=== PATIENT | female | born 1935 | race Caucasian/White ===

== ENCOUNTER 2017-12-17 08:06 | Emergency (ER) | payer MEDICARE ==
--- NOTE | 2017-12-17 08:19 | ERPHSYRPT ---
- History of Present Illness Time Seen by Provider: 12/17/17 08:14 Source: EMS Physician History: The patient is an 82-year-old demented female brought in by ambulance where she was reportedly found in a ditch filled with a few inches of cold water in front of her daughter's house this morning. The passerby called 911. The family did not know that the patient had walked out of the house during the night. It was lightly raining this morning. It had rained all night as well. There was about 6 inches of water in the ditch. Temperature outside is about 50. The patient doesn't recall much due to her dementia. Her past medical history is significant for hypertension, diabetes, hypothyroidism, dementia, and high cholesterol. Timing/Duration: today Severity: moderate Allergies/Adverse Reactions: No Known Drug Allergies Allergy (Verified 12/17/17 08:15) Home Medications: Amlodipine Besylate 5 mg [Norvasc 5 mg] 5 mg PO DAILY 04/05/12 [History] Aspirin EC 81 mg [Ecotrin 81 mg] 81 mg PO DAILY 04/05/12 [History] Atorvastatin Calcium [Lipitor 20MG Tablet] 40 mg PO DAILY 04/05/12 [History] Hydrochlorothiazide 25 mg [hydroDIURIL 25 MG] 25 mg PO DAILY 04/05/12 [ History] Metformin HCl 1000 mg [Glucophage 1000 MG] 1,000 mg PO BID 04/05/12 [History] Metoprolol Succinate 50 mg [Toprol Xl 50 MG] 50 mg PO BID 04/05/12 [ History] Enalapril Maleate [Vasotec] 40 mg PO DAILY 08/13/16 [History] Escitalopram Oxalate 10 mg [Lexapro 10 MG] 20 mg PO DAILY 08/13/16 [History] Levothyroxine Sodium [Synthroid] 137 mcg PO DAILY 08/13/16 [History] Omeprazole 20 MG [Prilosec 20 mg] 40 mg PO UD 08/13/16 [History] Hx Tetanus, Diphtheria Vaccination/Date Given: No Hx Influenza Vaccination/Date Given: (UNSURE) Hx Pneumococcal Vaccination/Date Given: (UNSURE) - Review of Systems Constitutional: Weakness, No Fever, No Chills Eyes: No Symptoms Ears, Nose, & Throat: No Symptoms Respiratory: No Cough, No Dyspnea Cardiac: No Chest Pain, No Edema, No Syncope Abdominal/Gastrointestinal: No Abdominal Pain, No Nausea, No Vomiting, No Diarrhea Genitourinary Symptoms: No Dysuria Musculoskeletal: No Back Pain, No Neck Pain Skin: No Rash Neurological: No Dizziness, No Focal Weakness, No Sensory Changes Psychological: No Symptoms Endocrine: No Symptoms Hematologic/Lymphatic: No Symptoms Immunological/Allergic: No Symptoms All Other Systems: Reviewed and Negative - Past Medical History Pertinent Past Medical History: Yes Neurological History: Dementia ENT History: No Pertinent History Cardiac History: High Cholesterol Respiratory History: No Pertinent History Endocrine Medical History: Diabetes Type II, Hypothyroidism Musculoskeletal History: Arthritis GI Medical History: Esophageal Disorder History: No Pertinent History Psycho-Social History: Depression Female Reproductive Disorders: No Pertinent History Other Medical History: NIDDM, HTN, High Chol, Depression, Bowel Obstruction, Hypothyroidism - Past Surgical History Past Surgical History: Yes Neuro Surgical History: No Pertinent History Cardiac: No Pertinent History Respiratory: No Pertinent History Gastrointestinal: Appendectomy Genitourinary: No Pertinent History Musculoskeletal: Joint Replacement Female Surgical History: No Pertinent History Other Surgical History: lt hip 2013 - Social History Smoking Status: Never smoker Exposure to second hand smoke: No Drug Use: none Patient Lives Alone: No - Nursing Vital Signs Nursing Vital Signs: Initial Vital Signs Temperature 97.9 F 12/17/17 08:08 Pulse Rate 77 12/17/17 08:08 Respiratory Rate 16 12/17/17 08:08 O2 Sat by Pulse Oximetry 96 12/17/17 08:08 Pain Scale Pain Intensity 4 - Physical Exam General Appearance: mild distress Eye Exam: PERRL/EOMI, eyes nml inspection Ears, Nose, Throat Exam: normal ENT inspection, TMs normal, pharynx normal, moist mucous membranes Neck Exam: normal inspection, non-tender, supple, full range of motion Respiratory Exam: normal breath sounds, lungs clear, No respiratory distress Cardiovascular Exam: regular rate/rhythm, normal heart sounds, normal peripheral pulses Gastrointestinal/Abdomen Exam: soft, normal bowel sounds, No tenderness, No mass Pelvic Exam: not done Rectal Exam: not done Back Exam: normal inspection, normal range of motion, No CVA tenderness, No vertebral tenderness Extremity Exam: joint swelling (left wrist), tenderness (left wrist) Neurologic Exam: cooperative Skin Exam: other (cool), No cyanosis, No mottled Lymphatic Exam: No adenopathy SpO2 Interpretation: normal - Radiology Exams Left Wrist X-ray Interpretation: Reviewed by me, Teleradiologist Report, Displaced Fracture (distal radius) Ordered Tests: Active Orders 24 hr Category Date Time Status Catheter-Kearny Jones STAT Care 12/17/17 08:24 Active IV Insertion STAT Care 12/17/17 08:24 Active Splint STAT Care 12/17/17 09:14 Active WRIST (MIN 3 VIEWS) Stat Exams 12/17/17 08:26 Completed CBC W DIFF Stat Lab 12/17/17 08:49 Completed CMP Stat Lab 12/17/17 08:49 Completed CULTURE,URINE Stat Lab 12/17/17 09:10 Received Lactic Acid Stat Lab 12/17/17 08:55 Completed Lactic Acid Stat Lab 12/17/17 11:09 Ordered TROPONIN Stat Lab 12/17/17 08:49 Completed UA W/ MICROSCOPIC Stat Lab 12/17/17 09:10 Completed Medication Summary Discontinued Medications Generic Name Dose Route Start Last Admin Trade Name Freq PRN Reason Stop Dose Admin Potassium Chloride 10 meq 12/17/17 09:58 12/17/17 10:09 Klor Con 10 Meq PO 12/17/17 09:59 10 meq STAT ONE Administration Potassium Chloride Confirm 12/17/17 10:06 Klor Con 10 Meq Administered 12/17/17 10:07 Dose 10 meq PO .STK-MED ONE Lab/Rad Data: Laboratory Result Diagrams 12/17/17 08:49 12/17/17 08:49 Laboratory Results 12/17/17 12/17/17 12/17/17 Range/Units 09:10 08:55 08:49 WBC (4.0-10.5) K/mm3 RBC (4.1-5.4) M/mm3 Hgb (12.0-16.0) gm/dl Hct (35-47) % MCV (78-100) fl MCH (26-32) pg MCHC (32-36) g/dl RDW (11.5-14.0) % Plt Count (150-450) K/mm3 MPV (6-9.5) fl Gran % (36.0-66.0) % Lymphocytes % (24.0-44.0) % Monocytes % (0.0-12.0) % Eosinophils % (0.00-5.0) % Basophils % (0.0-0.4) % Basophils # (0-0.4) Sodium (136-145) mEq/L Potassium (3.5-5.1) mEq/L Chloride (98-107) mEq/L Carbon Dioxide (21-32) mEq/L Anion Gap (5-15) MEQ/L BUN (9-20) mg/dL Creatinine (0.55-1.30) mg/dl Estimated GFR ML/MIN Glucose (70-110) MG/DL Lactic Acid 2.0 (0.4-2.0) Calcium (8.5-10.1) mg/dL Total Bilirubin (0.2-1.0) mg/dL AST (15-37) U/L ALT (12-78) U/L Alkaline Phosphatase (46-116) U/L Troponin I < 0.017 (0.000-0.056) ng/ml Serum Total Protein (6.4-8.2) gm/dL Albumin (3.4-5.0) g/dL Ur Collection Type CLEAN CATCH Urine Color YELLOW (YELLOW) Urine Appearance HAZY (CLEAR) Urine pH 5.0 (5-6) Ur Specific [place] 1.015 (1.005-1.025) Urine Protein TRACE (Negative) Urine Ketones NEGATIVE (NEGATIVE) Urine Blood 250 (0-5) Irineo/ul Urine Nitrite POSITIVE (NEGATIVE) Urine Bilirubin NEGATIVE (NEGATIVE) Urine Urobilinogen NORMAL (0-1) mg/dL Ur Leukocyte Esterase NEGATIVE (NEGATIVE) Urine Microscopic RBC 25-50 (0-2) /HPF Urine Microscopic WBC 0-2 (0-5) /HPF Ur Epithelial Cells FEW (FEW) /HPF Urine Bacteria MANY (NEGATIVE) /HPF Hyaline Casts 0-2 (0-2) /LPF Urine Culture Reflexed YES (NO) Urine Glucose NEGATIVE (NEGATIVE) mg/dL Slides for Path Review Specimen Received 12/17/17 0812/17/17 12/17/17 Range/Units 08:49 08:49 WBC 11.8 H (4.0-10.5) K/mm3 RBC 3.51 L (4.1-5.4) M/mm3 Hgb 11.1 L (12.0-16.0) gm/dl Hct 34.1 L (35-47) % MCV 97.2 (78-100) fl MCH 31.6 (26-32) pg MCHC 32.6 (32-36) g/dl RDW 13.7 (11.5-14.0) % Plt Count 245 (150-450) K/mm3 MPV 10.6 H (6-9.5) fl Gran % 35.6 L (36.0-66.0) % Lymphocytes % 59.8 H (24.0-44.0) % Monocytes % 3.5 (0.0-12.0) % Eosinophils % 0.8 (0.00-5.0) % Basophils % 0.3 (0.0-0.4) % Basophils # 0.03 (0-0.4) Sodium 143 (136-145) mEq/L Potassium 3.4 L (3.5-5.1) mEq/L Chloride 102 (98-107) mEq/L Carbon Dioxide 32.4 H (21-32) mEq/L Anion Gap 11.7 (5-15) MEQ/L BUN 21 H (9-20) mg/dL Creatinine 1.09 (0.55-1.30) mg/dl Estimated GFR 51 ML/MIN Glucose 167 H (70-110) MG/DL Lactic Acid (0.4-2.0) Calcium 8.8 (8.5-10.1) mg/dL Total Bilirubin 0.50 (0.2-1.0) mg/dL AST 17 (15-37) U/L ALT 14 (12-78) U/L Alkaline Phosphatase 62 (46-116) U/L Troponin I (0.000-0.056) ng/ml Serum Total Protein 6.9 (6.4-8.2) gm/dL Albumin 3.8 (3.4-5.0) g/dL Ur Collection Type Urine Color (YELLOW) Urine Appearance (CLEAR) Urine pH (5-6) Ur Specific [place] (1.005-1.025) Urine Protein (Negative) Urine Ketones (NEGATIVE) Urine Blood (0-5) Irineo/ul Urine Nitrite (NEGATIVE) Urine Bilirubin (NEGATIVE) Urine Urobilinogen (0-1) mg/dL Ur Leukocyte Esterase (NEGATIVE) Urine Microscopic RBC (0-2) /HPF Urine Microscopic WBC (0-5) /HPF Ur Epithelial Cells (FEW) /HPF Urine Bacteria (NEGATIVE) /HPF Hyaline Casts (0-2) /LPF Urine Culture Reflexed (NO) Urine Glucose (NEGATIVE) mg/dL Slides for Path Review YES Specimen Received - Progress Progress: improved Progress Note: 12/17/17 11:33 The patient was able to ambulate down the bales with some assistance. Counseled pt/family regarding: lab results, diagnosis, need for follow-up, rad results - Departure Time of Disposition: 09:59 Departure Disposition: Home Clinical Impression: Distal radius fracture, left, UTI (urinary tract infection), Hypokalemia, Fall , Hypothermia Condition: Stable Critical Care Time: No Referrals: DELL GORDON MD [Primary Care Provider] - Additional Instructions: You have a fracture of your left wrist. You were placed in a wrist splint. On Wednesday follow-up with the [facility] in [place] for a cast. There are number is [phone]. The address is [address] [place] [address]. You came in with hypothermia as well. Your serum potassium level was slightly low and you were given potassium 10 mEq orally. You also have a UTI. Take Macrobid 100 mg 2 times a day for 7 days. Follow-up on Wednesday at the [facility]. Follow-up with your primary medical doctor next week. Prescriptions: Nitrofurantoin Macro 100 mg [Macrobid 100MG Capsule] 100 mg PO BID #14 capsule
--- NOTE | 2017-12-17 08:52 | XRAY ---
Indication: Pain following fall. Comparison: None 3 views of the left wrist demonstrates osteopenia and displaced/angulated transverse fracture of the distal radius with soft tissue swelling. No other bony, articular, or soft tissue abnormalities.
[2017-12-17 08:53] LABS: BASOPHIL % 0.3 % (0.0-0.4); Basophil (Absolute #) 0.03 (0-0.4); Eosinophil % 0.8 % (0.00-5.0); Granulocyte Absolute (ANC) 4.22 (1.4-6.9); Granulocytes % 35.6 % (36.0-66.0); Hematocrit 34.1 % (35-47); Hemoglobin 11.1 gm/dl (12.0-16.0); Lymphocyte (Absolute #) 7.08 (1.0-4.6); Lymphocytes % 59.8 % (24.0-44.0); Mean Cell Volume 97.2 fl (78-100); Mean Corpuscular Hemoglobin 31.6 pg (26-32); Mean Corpuscular Hgb Concent. 32.6 g/dl (32-36); Mean Platelet Volume 10.6 fl (6-9.5); Monocyte (Absolute #) 0.41 (0.0-1.3); Monocytes % 3.5 % (0.0-12.0); Platelet Count 245 K/mm3 (150-450); Red Blood Count 3.51 M/mm3 (4.1-5.4); Red Cell Distribution Width 13.7 % (11.5-14.0); White Blood Count 11.8 K/mm3 (4.0-10.5)
[2017-12-17 09:17] LABS: Slide Review 1 YES
[2017-12-17 09:25] LABS: Appearance HAZY (CLEAR); Bilirubin NEGATIVE (NEGATIVE); Blood 250 Ery/ul (0-5); Glucose NEGATIVE (NEGATIVE); Ketones NEGATIVE (NEGATIVE); Leukocyte Esterase NEGATIVE (NEGATIVE); Nitrite POSITIVE (NEGATIVE); Protein,Urine Dip TRACE (Negative); Specific Gravity 1.015 (1.005-1.025); Urobilinogen NORMAL mg/dL (0-1)
[2017-12-17 09:26] LABS: ALBUMIN 3.8 g/dL (3.4-5.0); ANION GAP 11.7 MEQ/L (5-15); BILIRUBIN,TOTAL 0.5 mg/dL (0.2-1.0); Calcium 8.8 mg/dL (8.5-10.1); Carbon Dioxide 32.4 mEq/L (21-32); Creatinine 1 1.09 mg/dl (0.55-1.30); Potassium 3.4 mEq/L (3.5-5.1); Total Protein 6.9 gm/dL (6.4-8.2)
[2017-12-17 09:39] LABS: Bacteria MANY /HPF (NEGATIVE); Epithelial Cells FEW /HPF (FEW); WBC 0-2 /HPF (0-5)
[2017-12-17 09:40] LABS: Hyaline Casts 0-2 /LPF (0-2)
[2017-12-17] MEDS ORDERED: Klor Con 10 MEQ PO ONE ×2 (09:58→10:06)
[2017-12-17 11:50] VITALS: BP 165/76; PULSE 92; O2SAT 96
== END 2017-12-17 12:03 | disposition home or self-care (01) ==
LOC: ED 08:06
DX: S52.502A Unspecified fracture of the lower end of left radius, initial encounter for closed fracture (principal); N39.0 Urinary tract infection, site not specified; E87.6 Hypokalemia; T68.XXXA Hypothermia, initial encounter; X31.XXXA Exposure to excessive natural cold, initial encounter; W19.XXXA Unspecified fall, initial encounter; Z79.899 Other long term (current) drug therapy
CPT/HCPCS: 36415; 51702; 73110; 80053; 81000; 83605; 84484; 85025; 87077; 87086; 87186; 96360; 96361; 99285; L3908; A9270-GY

== ENCOUNTER 2017-12-17 10:30 | Inpatient (IN) | payer MEDICARE ==
[2017-12-17] MEDS ORDERED: NovoLOG Insulin SQ PRN (21:33)
[2017-12-17] MEDS ORDERED: MORPHINE SULFATE 2 MG INJ IV PRN (21:42)
[2017-12-17] MEDS: Sodium Chloride 0.9% 1000 ML 1,000 ML IV SCH (23:19)
[2017-12-18 06:03] LABS: Calcium 8.6 mg/dL (8.5-10.1); Carbon Dioxide 28.4 mEq/L (21-32); Creatinine 1 1.02 mg/dl (0.55-1.30); Hematocrit 29.7 % (35-47); Hemoglobin 9.8 gm/dl (12.0-16.0); Mean Cell Volume 97.1 fl (78-100); Mean Platelet Volume 10.9 fl (6-9.5); Platelet Count 242 K/mm3 (150-450); Potassium 3.2 mEq/L (3.5-5.1); Red Blood Count 3.06 M/mm3 (4.1-5.4); Red Cell Distribution Width 13.8 % (11.5-14.0)
[2017-12-18 06:19] LABS: INR 1.08 (0.8-3.0)
--- NOTE | 2017-12-18 08:39 | XRAY ---
Indication: Pain. Comparison: July 10, 2014. AP pelvis and 2 views of the left hip again demonstrates osteopenia and old left intertrochanteric fracture with intact orthopedic hardware and a few heterotopic ossifications. Mild/moderate degenerative changes of both hips and visualized lower lumbar spine. Scattered vascular calcifications. No other bony, articular, or soft tissue abnormalities. Comment: Preliminary interpretation was made by [facility]. No discrepancy.
[2017-12-18] MEDS ORDERED: Klor Con 10 MEQ PO ONE (08:45)
[2017-12-18] MEDS ORDERED: NORCO 5/325 MG PO PRN (09:34)
[2017-12-18] MEDS: ROCEPHIN 1 Gm-D5w 50 ml Bag** 1 G/50 ML IVPB IV SCH (09:56)
[2017-12-18] MEDS: Lexapro 10 MG PO SCH (09:59)
[2017-12-18] MEDS: hydroDIURIL 25 MG PO SCH (10:00)
[2017-12-18] MEDS: ECOTRIN 81 MG PO SCH (10:00)
[2017-12-18] MEDS ORDERED: NON-FORMULARY ITEM (Metformin Hcl 1000 Mg [Glucophage 1000 Mg] 1,000 MG) PO SCH (10:00)
[2017-12-18] MEDS ORDERED: NON-FORMULARY ITEM (Donepezil Hcl [Aricept] 5 MG) PO SCH (10:00)
[2017-12-18] MEDS: Vasotec 10 MG PO SCH ×2 (10:00→21:25)
[2017-12-18] MEDS: NORVASC 5 MG PO SCH (10:01)
[2017-12-18] MEDS: Aricept 10 MG PO SCH (10:01)
[2017-12-18] MEDS: Lopressor 50 MG PO SCH ×2 (10:02→21:25)
[2017-12-18] MEDS: Glucophage 500 MG PO SCH ×2 (10:15→17:19)
[2017-12-18] MEDS: ENOXAPARIN SODIUM SQ SCH (10:16)
--- NOTE | 2017-12-18 11:34 | PCM.NOTE ---
Date and Time: 12/18/17 1129 Subjective Assessment: She denies any concerns this AM but that she wants to get up to use the restroom. Her wrist brace is in place. - Review of Systems Constitutional: No Symptoms Eyes: No Symptoms Ears, Nose, & Throat: No Symptoms Respiratory: No Symptoms Cardiac: No Symptoms Abdominal/Gastrointestinal: No Symptoms Genitourinary Symptoms: No Symptoms Musculoskeletal: Other (left wrist pain, trouble walking) Objective Exam General Appearance: no apparent distress, alert Neurologic Exam: alert, cooperative, normal mood/affect, other (left wrist in brace) Skin Exam: normal color, warm, dry, No rash Respiratory Exam: normal breath sounds, lungs clear, No crackles/rales, No rhonchi, No wheezing Cardiovascular Exam: regular rate/rhythm, normal heart sounds, No murmur, No friction rub, No gallop Gastrointestinal/Abdomen Exam: soft, normal bowel sounds, No tenderness, No distention, No mass Extremity Exam: other (no c/c/e) OBJECTIVE DATA Vital Signs: Vital Signs - 24 hr Temp Pulse Resp BP Pulse Ox 12/18/17 07:24 98.4 F 91 H 16 194/85 92 L 12/18/17 04:00 97.8 F 85 24 155/72 93 L 12/18/17 00:31 97.9 F 80 18 137/75 95 12/17/17 22:17 98.8 F 75 20 134/63 95 Pain Assessment - Last Documented Pain Scale Used [facility] Intake and Output: Intake & Output 12/16/17 12/17/17 12/18/17 12/19/17 06:59 06:59 06:59 06:59 Intake Total 113 120 Output Total 500 Balance 113 -380 Weight 79.8 kg Lab Results: Accuchecks Date 12/18/17 Time 22:00 Accucheck Value: 120 Lab Results-Last 24 Hours 12/18/17 12/18/17 12/18/17 Range/Units 05:44 05:44 05:44 WBC 15.0 H (4.0-10.5) K/mm3 RBC 3.06 L (4.1-5.4) M/mm3 Hgb 9.8 L (12.0-16.0) gm/dl Hct 29.7 L (35-47) % MCV 97.1 (78-100) fl MCH 32.0 (26-32) pg MCHC 33.0 (32-36) g/dl RDW 13.8 (11.5-14.0) % Plt Count 242 (150-450) K/mm3 MPV 10.9 H (6-9.5) fl INR 1.08 (0.8-3.0) Sodium 146 H (136-145) mEq/L Potassium 3.2 L (3.5-5.1) mEq/L Chloride 106 (98-107) mEq/L Carbon Dioxide 28.4 (21-32) mEq/L Anion Gap 15.0 (5-15) MEQ/L BUN 20 (9-20) mg/dL Creatinine 1.02 (0.55-1.30) mg/dl Estimated GFR 55 ML/MIN Glucose 178 H (70-110) MG/DL Calcium 8.6 (8.5-10.1) mg/dL Radiology Exams: Radiology Procedures Category Date Time Status HIP UNI (2V) INCL PEL IF DONE Routine Exams 12/18/17 04:11 Completed Assessment/Plan (1) Gait instability Current Visit: Yes Status: Acute Assessment & Plan: PT has been consulted, on fall precautions. Her family states they want to take her back home once she is safe to ambulate at home on her own. Code(s): R26.81 - UNSTEADINESS ON FEET (2) Frequent falls Current Visit: Yes Status: Acute Code(s): R29.6 - REPEATED FALLS (3) UTI (urinary tract infection) Current Visit: No Status: Acute Assessment & Plan: She was unable to start her oral antibiotic at home and from reveiw of the ER note, she was not given an antibiotic in the ER while she was there yesterday AM. Will start ceftriaxone 1 g IV daily today. Urine culture in lab. Code(s): N39.0 - URINARY TRACT INFECTION, SITE NOT SPECIFIED (4) Distal radius fracture, left Current Visit: No Status: Acute Assessment & Plan: She has an outpatient appointment with ortho Wednesday. This may need to be rescheduled. Code(s): S52.502A - UNSP FRACTURE OF THE LOWER END OF LEFT RADIUS, INIT (5) Diabetes mellitus Current Visit: No Status: Acute Qualifiers: Diabetes mellitus type: type 2 Diabetes mellitus complication status: without complication Assessment & Plan: Continue home medication. Code(s): E11.9 - TYPE 2 DIABETES MELLITUS WITHOUT COMPLICATIONS (6) Dementia Current Visit: No Status: Acute Assessment & Plan: Continue home medication. Code(s): F03.90 - UNSPECIFIED DEMENTIA WITHOUT BEHAVIORAL DISTURBANCE (7) Anemia Current Visit: Yes Status: Acute Qualifiers: Anemia type: unspecified type Qualified Code(s): D64.9 - Anemia, unspecified Assessment & Plan: Will check Iron studies and Vit B 12 level. Code(s): D64.9 - ANEMIA, UNSPECIFIED (8) Hypertension Current Visit: Yes Status: Acute Assessment & Plan: Continue her home medication and continue to monitor. Code(s): I10 - ESSENTIAL (PRIMARY) HYPERTENSION
[2017-12-18 13:31] LABS: Iron Saturation 11.1 % (20-39)
[2017-12-18 14:01] LABS: Ferritin 54 (8-388)
[2017-12-18] MEDS: SYNTHROID 25 MCG PO SCH (21:25)
[2017-12-18] MEDS: TYLENOL 325 MG PO PRN (21:26)
[2017-12-18] MEDS: ZOCOR 20MG PO SCH (21:26)
[2017-12-18] MEDS: SYNTHROID 112 MCG PO SCH (21:26)
--- NOTE | 2017-12-18 21:49 | XRAY ---
Indication: Pain following fall. Comparison: None 3 views of the left shoulder demonstrates osteopenia, moderate glenohumeral degenerative arthropathy, mild AC degenerative arthropathy, and multilevel spinal degenerative spondylosis. No other bony, articular, or soft tissue abnormalities. Comment: Preliminary interpretation was made by [facility]. No critical discrepancy.
[2017-12-18] MEDS ORDERED: LEVOTHYROXINE SODIUM 137 MCG PO SCH (22:00)
[2017-12-18] MEDS ORDERED: LIPITOR 40MG PO SCH (22:00)
[2017-12-19] MEDS: Sodium Chloride 0.9% 1000 ML 1,000 ML IV SCH (08:11)
[2017-12-19] MEDS: ROCEPHIN 1 Gm-D5w 50 ml Bag** 1 G/50 ML IVPB IV SCH (08:15)
[2017-12-19] MEDS: Lexapro 10 MG PO SCH (08:15)
[2017-12-19] MEDS: ENOXAPARIN SODIUM SQ SCH (08:15)
[2017-12-19] MEDS: Aricept 10 MG PO SCH (08:16)
[2017-12-19] MEDS: Vasotec 10 MG PO SCH ×3 (08:17→21:11)
[2017-12-19] MEDS: Glucophage 500 MG PO SCH ×2 (08:18→18:06)
[2017-12-19] MEDS: NORVASC 5 MG PO SCH (08:18)
[2017-12-19] MEDS: hydroDIURIL 25 MG PO SCH (08:18)
[2017-12-19] MEDS: TYLENOL 325 MG PO PRN (08:18)
[2017-12-19] MEDS: ECOTRIN 81 MG PO SCH (08:18)
[2017-12-19] MEDS: Lopressor 50 MG PO SCH ×2 (08:18→21:10)
--- NOTE | 2017-12-19 10:54 | PCM.NOTE ---
Date and Time: 12/19/17 1049 Subjective Assessment: She seems confused this AM. When I asked if she was able to get up out of bed yesterday she told me that I should make sure that I am taking care of myself. - Review of Systems All Other Systems: Unable due to dementia (She denies any problems or concerns, but history is unreliable due to dementia.) Objective Exam General Appearance: no apparent distress Neurologic Exam: alert, cooperative, normal mood/affect Skin Exam: normal color, warm, dry, No rash Respiratory Exam: normal breath sounds, lungs clear, No crackles/rales, No rhonchi, No wheezing Cardiovascular Exam: regular rate/rhythm, normal heart sounds, No murmur, No friction rub, No gallop Gastrointestinal/Abdomen Exam: soft, normal bowel sounds, No tenderness, No distention, No mass Extremity Exam: other (left wrist in splint) OBJECTIVE DATA Vital Signs: Vital Signs - 24 hr Temp Pulse Resp BP Pulse Ox 12/19/17 07:19 97.9 F 85 18 189/79 95 12/19/17 04:00 97.8 F 80 22 146/71 90 L 12/19/17 00:00 73 18 186/81 91 L 12/18/17 20:00 98 F 97 H 12 190/92 93 L 12/18/17 17:00 98.6 F 90 16 184/86 94 L 12/18/17 11:43 98.6 F 91 H 16 186/84 93 L Oxygen-Last 24 hours O2 Percentage 3 Liters = 32% Pain Assessment - Last Documented Pain Intensity 0 Pain Scale Used [facility] Intake and Output: Intake & Output 12/17/17 12/18/17 12/19/17 12/20/17 06:59 06:59 06:59 06:59 Intake Total 113 1220 360 Output Total 1000 Balance 113 220 360 Weight 79.8 kg Lab Results: Accuchecks Date 12/19/17 Time 07:30 Accucheck Value: 159 Accucheck Value: 110 Accucheck Value: 231 Lab Results-Last 24 Hours 12/18/17 12/18/17 Range/Units 05:15 05:15 Iron 27 L (50-175) ug/dl TIBC 244 L (250-450) ug/dl Iron Saturation 11.1 L (20-39) % Ferritin 54 (8-388) Vitamin B12 196 (193-986) Radiology Exams: Radiology Procedures Category Date Time Status HIP UNI (2V) INCL PEL IF DONE Routine Exams 12/18/17 04:11 Completed SHOULDER Urgent Exams 12/18/17 12:39 Completed Multi-Disciplinary Progress Notes: Multi-Disciplinary Progress Notes 12/18/17 11:46 Case Management Note by Eneida Mccormack DISCHARGE PLAN REVIEWED WITH PATIENT AND WITH LAY CAREGIVER IN THE ROOM. PATIENT NORMALLY LIVES WITH [place] AND DAUGHTER IS ACROSS THE STRE[address]. THE FAMILY CHECKS ON HER DAILY AND COMES WHEN CALLED. YESTERDAY MORNING PATIENT WAS FOUND IN THE DITCH ACROSS THE STREET FROM HER HOME, WITH 4-5 INCHES OF WATER IN THE DITCH AND A FRACTURED WRIST. SEEN IN ER AND SENT HOME TO COME BACK LATER D.A. FAMILY REFUSES NH STAY. DOES REQUEST NEEDING HHC TO COME IN AND HELP WITH ADL'S, BATHING AND HOME MAKING. DAUGHTER GETTING A LOCK WITH AN ALARM ON THE DOOR THAT WILL HELP KEEP HER MOM FROM WANDERING. PLAN TO CONSULT OUR [facility] TO HELP COORDINATE CARE. PLAN TO RETURN HOME TO PRE EPISODIC LEVEL OF FUNCTION WITH MORE HELP IN THE HOME. WILL CONTINUE TO MONITOR FOR ALL D/C NEEDS. Initialized on 12/18/17 11:46 - END OF NOTE Assessment/Plan (1) Gait instability Current Visit: Yes Status: Acute Assessment & Plan: PT consulted. Continue with fall precautions. OT consulted also as she sometimes uses a walker but now has a fractured left wrist. Code(s): R26.81 - UNSTEADINESS ON FEET (2) Frequent falls Current Visit: Yes Status: Acute Code(s): R29.6 - REPEATED FALLS (3) UTI (urinary tract infection) Current Visit: Yes Status: Acute Assessment & Plan: Urine culture from ER visit 12/17/17 is growing a gram neg organism. Continue ceftriaxone and follow up on culture results. Code(s): N39.0 - URINARY TRACT INFECTION, SITE NOT SPECIFIED (4) Distal radius fracture, left Current Visit: Yes Status: Acute Assessment & Plan: Ortho appt was scheduled as an outpatient for Wednesday when she was in the ER on her first visit to this hospital last Wednesday but this may need to be rescheduled. Code(s): S52.502A - UNSP FRACTURE OF THE LOWER END OF LEFT RADIUS, INIT (5) Diabetes mellitus Current Visit: No Status: Chronic Qualifiers: Diabetes mellitus type: type 2 Diabetes mellitus complication status: without complication Assessment & Plan: Currently controlled. Code(s): E11.9 - TYPE 2 DIABETES MELLITUS WITHOUT COMPLICATIONS (6) Dementia Current Visit: No Status: Chronic Code(s): F03.90 - UNSPECIFIED DEMENTIA WITHOUT BEHAVIORAL DISTURBANCE (7) Anemia Current Visit: Yes Status: Acute Qualifiers: Anemia type: iron deficiency Assessment & Plan: Iron levels were low. Will check stool for hemoccult and start ferrous sulfate. Her Vit B 12 level was normal. Code(s): D64.9 - ANEMIA, UNSPECIFIED (8) Hypertension Current Visit: Yes Status: Acute Assessment & Plan: Will increase her metoprolol from 50 mg po bid to 100 mg po bid and continue her other antihypertensive medications. Code(s): I10 - ESSENTIAL (PRIMARY) HYPERTENSION
[2017-12-19] MEDS ORDERED: Lopressor 50 MG PO ONE (11:30)
[2017-12-19] MEDS: FEOSOL 325 MG PO SCH ×3 (15:08→21:10)
[2017-12-19] MEDS: SYNTHROID 25 MCG PO SCH (21:10)
[2017-12-19] MEDS: ZOCOR 20MG PO SCH ×2 (21:10→21:11)
[2017-12-19] MEDS: SYNTHROID 112 MCG PO SCH (21:11)
[2017-12-20 05:25] LABS: Granulocyte Absolute (ANC) 6.24 (1.4-6.9); Hematocrit 30.7 % (35-47); Hemoglobin 10.1 gm/dl (12.0-16.0); Mean Cell Volume 97.2 fl (78-100); Mean Corpuscular Hgb Concent. 32.9 g/dl (32-36); Mean Platelet Volume 10.7 fl (6-9.5); Platelet Count 271 K/mm3 (150-450); Red Blood Count 3.16 M/mm3 (4.1-5.4); White Blood Count 16.7 K/mm3 (4.0-10.5)
[2017-12-20 05:42] LABS: Mean Corpuscular Hemoglobin 31.9 pg (26-32)
[2017-12-20 06:13] LABS: ANION GAP 13.8 MEQ/L (5-15); BLOOD UREA NITROGEN 15 mg/dL (9-20); CHLORIDE 106 mEq/L (98-107); Calcium 8.3 mg/dL (8.5-10.1); Carbon Dioxide 29.3 mEq/L (21-32); Creatinine 1 0.88 mg/dl (0.55-1.30); Glucose 140 MG/DL (70-110); Potassium 3.1 mEq/L (3.5-5.1); SODIUM 146 mEq/L (136-145)
[2017-12-20 07:46] LABS: Eosinophil 2 % (0.00-3.0); Lymphocytes 41 % (24-44); Monocyte 2 % (0.0-12.0); Neutrophils 55 % (36.0-66.0); Total Cells Counted 100
[2017-12-20 07:47] LABS: ANISOCYTOSIS 1+; Platelet Estimate NORMAL (NORMAL); Poikilocytosis 1+; Polychromasia 1+
--- NOTE | 2017-12-20 08:05 | PCM.NOTE ---
Date and Time: 12/20/17 0803 Subjective Assessment: patient remains very confused, no other complaints. daughter concered with rapid severity increase in her confusion Objective Exam General Appearance: no apparent distress, alert Skin Exam: normal color, warm, dry Eye Exam: PERRL, EOMI, eyes nml inspection Respiratory Exam: normal breath sounds, lungs clear, No respiratory distress Cardiovascular Exam: regular rate/rhythm, normal heart sounds Gastrointestinal/Abdomen Exam: soft, No tenderness, No mass OBJECTIVE DATA Vital Signs: Vital Signs - 24 hr Temp Pulse Resp BP Pulse Ox 12/20/17 07:45 98.5 F 79 18 148/84 93 L 12/20/17 00:40 98.2 F 82 18 165/86 91 L 12/19/17 21:02 98.7 F 84 19 180/84 92 L 12/19/17 16:45 96.6 F 75 18 163/73 90 L 12/19/17 11:13 97.3 F 70 18 120/59 92 L Pain Assessment - Last Documented Pain Intensity 0 [facility] Intake and Output: Intake & Output 12/17/17 12/18/17 12/19/17 12/20/17 11:59 11:59 11:59 11:59 Intake Total 233 1460 910 Output Total 500 500 Balance -267 960 910 Weight 79.8 kg Lab Results: Accuchecks Date 12/19/17 Date 12/19/17 Time 16:30 Time 15:16 Accucheck Value: 160 Accucheck Value: 90 Lab Results-Last 24 Hours 12/20/17 12/20/17 Range/Units 05:13 05:13 WBC 16.7 H (4.0-10.5) K/mm3 RBC 3.16 L (4.1-5.4) M/mm3 Hgb 10.1 L (12.0-16.0) gm/dl Hct 30.7 L (35-47) % MCV 97.2 (78-100) fl MCH 31.9 (26-32) pg MCHC 32.9 (32-36) g/dl RDW 14.0 (11.5-14.0) % Plt Count 271 (150-450) K/mm3 MPV 10.7 H (6-9.5) fl Segmented Neutrophils 55 (36.0-66.0) % Lymphocytes (Manual) 41 (24-44) % Monocytes (Manual) 2 (0.0-12.0) % Eosinophils (Manual) 2 (0.00-3.0) % Differential Comment ABNORMAL Platelet Estimate NORMAL (NORMAL) Polychromasia 1+ Poikilocytosis 1+ Anisocytosis 1+ Sodium 146 H (136-145) mEq/L Potassium 3.1 L (3.5-5.1) mEq/L Chloride 106 (98-107) mEq/L Carbon Dioxide 29.3 (21-32) mEq/L Anion Gap 13.8 (5-15) MEQ/L BUN 15 (9-20) mg/dL Creatinine 0.88 (0.55-1.30) mg/dl Estimated GFR > 60 ML/MIN Glucose 140 H (70-110) MG/DL Calcium 8.3 L (8.5-10.1) mg/dL Radiology Exams: Radiology Procedures Category Date Time Status MRI BRAIN W/O CONTRAST [MRI] Routine Exams 12/20/17 08:02 Ordered SHOULDER Urgent Exams 12/18/17 12:39 Completed Assessment/Plan (1) UTI (urinary tract infection) Current Visit: Yes Status: Acute Assessment & Plan: on rocephin Code(s): N39.0 - URINARY TRACT INFECTION, SITE NOT SPECIFIED (2) Distal radius fracture, left Current Visit: Yes Status: Acute Code(s): S52.502A - UNSP FRACTURE OF THE LOWER END OF LEFT RADIUS, INIT (3) Gait instability Current Visit: Yes Status: Acute Code(s): R26.81 - UNSTEADINESS ON FEET (4) Dementia Current Visit: No Status: Chronic Code(s): F03.90 - UNSPECIFIED DEMENTIA WITHOUT BEHAVIORAL DISTURBANCE
[2017-12-20] MEDS: Glucophage 500 MG PO SCH ×2 (08:16→17:03)
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
[2017-12-20] MEDS: ECOTRIN 81 MG PO SCH (10:22)
[2017-12-20] MEDS: hydroDIURIL 25 MG PO SCH (10:22)
[2017-12-20] MEDS: ROCEPHIN 1 Gm-D5w 50 ml Bag** 1 G/50 ML IVPB IV SCH (10:22)
[2017-12-20] MEDS: FEOSOL 325 MG PO SCH ×3 (10:22→22:14)
[2017-12-20] MEDS: Lexapro 10 MG PO SCH (10:22)
[2017-12-20] MEDS: Aricept 10 MG PO SCH (10:22)
[2017-12-20] MEDS: Klor Con 10 MEQ PO SCH ×2 (10:22→22:14)
[2017-12-20] MEDS: Lopressor 50 MG PO SCH ×2 (10:23→22:14)
[2017-12-20] MEDS: NORVASC 5 MG PO SCH (10:23)
[2017-12-20] MEDS: Vasotec 10 MG PO SCH ×2 (10:23→22:21)
[2017-12-20] MEDS: ENOXAPARIN SODIUM SQ SCH (10:23)
[2017-12-20] MEDS ORDERED: Lopressor 50 MG PO ONE (11:30)
--- NOTE | 2017-12-20 12:32 | XRAY ---
Indication: retirement placement. Comparison: August 15, 2016. Portable chest unchanged again demonstrating medial right upper lobe infiltrate/atelectasis and minimal left base fibrosis/scarring. Remaining heart and lungs unremarkable. Bony thorax intact again with osteopenia and degenerative changes.
--- NOTE | 2017-12-20 12:35 | XRAY ---
Indication: Confusion. Acute mental status change. Possible CVA. Sagittal, coronal, and axial MRI brain was performed without contrast using T1, T2, FLAIR, diffusion, and ADC sequences. Comparison: August 14, 2016. Stable age-appropriate global atrophy and mild periventricular degenerative micro-ischemia bilaterally. No acute intracranial hemorrhage, abnormal extra-axial fluid collection, or mass effect. Diffusion images again negative for restricted signal. Fourth ventricle is midline without hydrocephalus. 7/8 cranial nerve complex bilaterally symmetric. Normal flow-void signal within the major intracerebral circulation. Normal-appearing craniocervical junction and sella turcica. Paranasal sinuses are clear. Impression: Stable atrophy and degenerative micro-ischemia. No new or acute intracranial abnormalities.
[2017-12-20] MEDS: SYNTHROID 112 MCG PO SCH (22:14)
[2017-12-20] MEDS: SYNTHROID 25 MCG PO SCH (22:15)
[2017-12-20] MEDS: ZOCOR 20MG PO SCH (22:21)
[2017-12-21 05:50] LABS: BASOPHIL % 0.2 % (0.0-0.4); Basophil (Absolute #) 0.03 (0-0.4); Eosinophil (Absolute #) 0.15 (0-0.5); Granulocyte Absolute (ANC) 4.98 (1.4-6.9); Granulocytes % 33.3 % (36.0-66.0); Hematocrit 31.3 % (35-47); Hemoglobin 10.2 gm/dl (12.0-16.0); Lymphocyte (Absolute #) 9.06 (1.0-4.6); Lymphocytes % 60.4 % (24.0-44.0); Mean Cell Volume 98.1 fl (78-100); Mean Corpuscular Hgb Concent. 32.6 g/dl (32-36); Mean Platelet Volume 11.1 fl (6-9.5); Monocyte (Absolute #) 0.77 (0.0-1.3); Monocytes % 5.1 % (0.0-12.0); Platelet Count 270 K/mm3 (150-450); Red Blood Count 3.19 M/mm3 (4.1-5.4); Red Cell Distribution Width 13.9 % (11.5-14.0)
[2017-12-21 06:04] LABS: ALKALINE PHOSPHATASE 57 U/L (46-116); ANION GAP 13.5 MEQ/L (5-15); BLOOD UREA NITROGEN 17 mg/dL (9-20); CHLORIDE 107 mEq/L (98-107); Calcium 8.3 mg/dL (8.5-10.1); Carbon Dioxide 29.6 mEq/L (21-32); Creatinine 1 0.89 mg/dl (0.55-1.30); Glucose 125 MG/DL (70-110); Potassium 3.2 mEq/L (3.5-5.1); SGOT/AST 13 U/L (15-37); SGPT/ALT 15 U/L (12-78); SODIUM 147 mEq/L (136-145); Total Protein 6.4 gm/dL (6.4-8.2)
[2017-12-21 06:05] LABS: Mean Corpuscular Hemoglobin 31.9 pg (26-32)
[2017-12-21 07:27] LABS: Slide Review 1 YES
[2017-12-21] MEDS: ROCEPHIN 1 Gm-D5w 50 ml Bag** 1 G/50 ML IVPB IV SCH (08:15)
[2017-12-21] MEDS: Lexapro 10 MG PO SCH (08:16)
[2017-12-21] MEDS: Klor Con 10 MEQ PO SCH ×2 (08:16→22:43)
[2017-12-21] MEDS: Glucophage 500 MG PO SCH ×2 (08:16→16:24)
[2017-12-21] MEDS: hydroDIURIL 25 MG PO SCH (08:16)
[2017-12-21] MEDS: ENOXAPARIN SODIUM SQ SCH (08:16)
[2017-12-21] MEDS: Lopressor 50 MG PO SCH ×2 (08:16→22:42)
[2017-12-21] MEDS: FEOSOL 325 MG PO SCH ×3 (08:16→22:42)
[2017-12-21] MEDS: Vasotec 10 MG PO SCH ×2 (08:16→22:42)
[2017-12-21] MEDS: ECOTRIN 81 MG PO SCH (08:16)
[2017-12-21] MEDS: NORVASC 5 MG PO SCH (08:16)
[2017-12-21] MEDS: Aricept 10 MG PO SCH (08:17)
[2017-12-21] MEDS: Sodium Chloride 0.9% 1000 ML 1,000 ML IV SCH (08:21)
--- NOTE | 2017-12-21 10:26 | PCM.NOTE ---
Date and Time: 12/21/17 1025 Subjective Assessment: family is encouraged, patient is more alert today. no new problems or concerns. Objective Exam General Appearance: no apparent distress, alert, other (frail and weak) Skin Exam: normal color, warm, dry Eye Exam: PERRL, EOMI, eyes nml inspection Respiratory Exam: normal breath sounds, lungs clear, No respiratory distress Cardiovascular Exam: regular rate/rhythm, normal heart sounds Gastrointestinal/Abdomen Exam: soft, No tenderness, No mass Extremity Exam: normal inspection, normal range of motion OBJECTIVE DATA Vital Signs: Vital Signs - 24 hr Temp Pulse Resp BP Pulse Ox 12/21/17 07:56 98.0 F 97 H 18 195/79 94 L 12/21/17 04:40 98.9 F 84 17 131/60 92 L 12/21/17 00:00 99.1 F 85 19 150/67 92 L 12/20/17 20:00 97.9 F 95 H 19 125/63 93 L 12/20/17 16:00 97.6 F 76 16 139/60 95 12/20/17 13:00 98.4 F 87 20 157/80 94 L Pain Assessment - Last Documented Pain Intensity 0 [facility] Intake and Output: Intake & Output 12/18/17 12/19/17 12/20/17 12/21/17 11:59 11:59 11:59 11:59 Intake Total 233 1460 1030 1518 Output Total 500 500 350 Balance -133 649 4518 1168 Weight 79.8 kg 79.8 kg Lab Results: Accuchecks Date 12/21/17 Date 12/20/17 Date 12/20/17 Time 07:38 Accucheck Value: 118 Accucheck Value: 154 Accucheck Value: 110 Lab Results-Last 24 Hours 12/21/17 12/21/17 Range/Units 05:24 05:24 WBC 15.0 H (4.0-10.5) K/mm3 RBC 3.19 L (4.1-5.4) M/mm3 Hgb 10.2 L (12.0-16.0) gm/dl Hct 31.3 L (35-47) % MCV 98.1 (78-100) fl MCH 31.9 (26-32) pg MCHC 32.6 (32-36) g/dl RDW 13.9 (11.5-14.0) % Plt Count 270 (150-450) K/mm3 MPV 11.1 H (6-9.5) fl Gran % 33.3 L (36.0-66.0) % Lymphocytes % 60.4 H (24.0-44.0) % Monocytes % 5.1 (0.0-12.0) % Eosinophils % 1.0 (0.00-5.0) % Basophils % 0.2 (0.0-0.4) % Basophils # 0.03 (0-0.4) Sodium 147 H (136-145) mEq/L Potassium 3.2 L (3.5-5.1) mEq/L Chloride 107 (98-107) mEq/L Carbon Dioxide 29.6 (21-32) mEq/L Anion Gap 13.5 (5-15) MEQ/L BUN 17 (9-20) mg/dL Creatinine 0.89 (0.55-1.30) mg/dl Estimated GFR > 60 ML/MIN Glucose 125 H (70-110) MG/DL Calcium 8.3 L (8.5-10.1) mg/dL Magnesium 1.4 L (1.8-2.4) mg/dL Total Bilirubin 0.50 (0.2-1.0) mg/dL AST 13 L (15-37) U/L ALT 15 (12-78) U/L Alkaline Phosphatase 57 (46-116) U/L Serum Total Protein 6.4 (6.4-8.2) gm/dL Albumin 3.0 L (3.4-5.0) g/dL Slides for Path Review YES Radiology Exams: Radiology Procedures Category Date Time Status CHEST 1 VIEW (PORTABLE) Routine Exams 12/20/17 11:04 Completed MRI BRAIN W/O CONTRAST [MRI] Routine Exams 12/20/17 08:02 Completed Multi-Disciplinary Progress Notes: Multi-Disciplinary Progress Notes 12/20/17 14:00 (created 12/20/17 15:46) Case Management Note by Jenny Rico SPOKE WITH DENISE AT [facility], REPORTS THAT THEY WILL HAVE REHAB BED AVAIL ON DISCHARGE. Initialized on 12/20/17 15:46 - END OF NOTE 12/20/17 12:08 Case Management Note by Eneida Mccormack LEVEL I WEB APPROVED, NO LEVEL II REQUIRED. ATTACHED TO PAPER CHART. Initialized on 12/20/17 12:08 - END OF NOTE 12/20/17 12:00 (created 12/20/17 15:46) Case Management Note by Jenny Rico REFERRAL TO [facility], SPOKE WITH ILEANA, FAXED REFERRAL AT THIS TIME PER REQUEST. Initialized on 12/20/17 15:46 - END OF NOTE 12/20/17 10:35 (created 12/20/17 15:39) Case Management Note by Jenny Rico DISCHARGE PLAN REVIEWED IN LENGTH WITH PT'S DAUGHTER AT THIS TIME. DAUGHTER REPORTS THAT NORMALLY THEY HAVE THEIR ROUTINE AT HOME. REPORTS THAT SHE LIVES [place]OSS [place] [address], DOES NOT WORK, AND CHECKS ON HER MOTHER OFTEN. REPORTS THAT HER DAD IS HOME MOST OF THE TIME, BUT THAT HE LEAVES DAILY BETWEEN 1200PM OR 1: 00PM AND RETURNS HOME BETWEEN 3:00PM-4:00PM. DID DISCUSS MENTAL STATUS OF PT AND ALSO THE AMOUNT OF CARE PT IS NEEDING. PT IS HEAVY ASSIST X 2 FOR TRANSFERS TODAY. DAUGHTER REPORTS THAT SHE WAS AFRAID THAT THIS WAS COMING. REPORTS THAT THERE IS NO WAY THEY CAN PROVIDE THAT MUCH CARE IN THE HOME 17/05. REPORTS AT THIS TIME THAT THEY WILL BE INTERESTED IN SKILLED REHAB STAY @ [facility] ON DISCHARGE. REQUESTS REFERRAL TO [facility], THIS FACILITY IS CLOSE TO THEIR HOME. DECLINED ADDNL NEEDS AT PRESENT. WILL CONTINUE TO FOLLOW AND ASSESS FOR ALL DC NEEDS. Initialized on 12/20/17 15:39 - END OF NOTE Assessment/Plan (1) UTI (urinary tract infection) Current Visit: Yes Status: Acute Assessment & Plan: on rocephin, continue Code(s): N39.0 - URINARY TRACT INFECTION, SITE NOT SPECIFIED (2) Distal radius fracture, left Current Visit: Yes Status: Acute Code(s): S52.502A - UNSP FRACTURE OF THE LOWER END OF LEFT RADIUS, INIT (3) Gait instability Current Visit: Yes Status: Acute Code(s): R26.81 - UNSTEADINESS ON FEET (4) Dementia Current Visit: No Status: Chronic Code(s): F03.90 - UNSPECIFIED DEMENTIA WITHOUT BEHAVIORAL DISTURBANCE
[2017-12-21] MEDS ORDERED: Sodium Chloride 0.9% W/ 20 mEq KCl/LITER 1,000 ML IV SCH (10:30)
[2017-12-21] MEDS: SYNTHROID 25 MCG PO SCH (22:42)
[2017-12-21] MEDS: ZOCOR 20MG PO SCH (22:42)
[2017-12-21] MEDS: SYNTHROID 112 MCG PO SCH (23:07)
[2017-12-22 06:03] LABS: Granulocyte Absolute (ANC) 5.43 (1.4-6.9); Hemoglobin 10.5 gm/dl (12.0-16.0); Mean Cell Volume 97.9 fl (78-100); Mean Corpuscular Hemoglobin 32.1 pg (26-32); Mean Corpuscular Hgb Concent. 32.8 g/dl (32-36); Platelet Count 306 K/mm3 (150-450); Red Blood Count 3.27 M/mm3 (4.1-5.4); Red Cell Distribution Width 13.9 % (11.5-14.0); White Blood Count 15.9 K/mm3 (4.0-10.5)
[2017-12-22 06:58] LABS: ANION GAP 15.2 MEQ/L (5-15); BLOOD UREA NITROGEN 18 mg/dL (9-20); CHLORIDE 104 mEq/L (98-107); Calcium 8.5 mg/dL (8.5-10.1); Carbon Dioxide 26.9 mEq/L (21-32); Creatinine 1 0.86 mg/dl (0.55-1.30); Glucose 135 MG/DL (70-110); Potassium 3.3 mEq/L (3.5-5.1); SODIUM 143 mEq/L (136-145)
[2017-12-22 07:57] VITALS: BP 136/73; PULSE 77; O2SAT 94
[2017-12-22 08:09] LABS: Eosinophil 2 % (0.00-3.0); Lymphocytes 66 % (24-44); Monocyte 3 % (0.0-12.0); Neutrophils 29 % (36.0-66.0); Platelet Estimate NORMAL (NORMAL); Total Cells Counted 100
--- NOTE | 2017-12-22 09:40 | PCM.DS ---
Discharge Summary Date of Admission: 12/18/17 10:30 Admitting Physician: DELL GORDON Primary Care Provider: DELL GORDON Allergies Allergies No Known Drug Allergies Allergy (Verified 12/17/17 08:15) Hospital Summary - Hospital Course Hospital Course: patient was admitted, had a fall with a wrist fracture. was very confused. found to have a UTI and has been very confused and unable to ambulate on her own since admission. she has been on rocephin x 4 days with continued confusion despite adequate treatment of UTI. [facility] for rehab today - Vitals & Intake/Output Vital Signs: Vital Signs Temperature 98.1 F 12/22/17 07:58 Pulse Rate 77 12/22/17 07:58 Respiratory Rate 16 12/22/17 07:58 Blood Pressure 136/73 12/22/17 07:58 O2 Sat by Pulse Oximetry 94 L 12/22/17 07:58 Oxygen-Last Documented O2 Percentage 3 Liters = 32% Intake & Output: Intake & Output 12/19/17 12/20/17 12/21/17 12/22/17 11:59 11:59 11:59 11:59 Intake Total 1460 1030 1518 1351 Output Total 500 350 350 Balance 960 1030 1168 1001 Weight 79.8 kg - Lab Result Diagrams: 12/22/17 05:20 12/22/17 05:20 Lab Results-Last 24 Hrs: Accuchecks Date 12/22/17 Date 12/21/17 Date 12/21/17 Time 07:30 Time 16:04 Time 11:51 Accucheck Value: 159 Accucheck Value: 164 Accucheck Value: 81 Lab Results-Last 24 Hours 12/22/17 12/22/17 Range/Units 05:20 05:20 WBC 15.9 H (4.0-10.5) K/mm3 RBC 3.27 L (4.1-5.4) M/mm3 Hgb 10.5 L (12.0-16.0) gm/dl Hct 32.0 L (35-47) % MCV 97.9 (78-100) fl MCH 32.1 H (26-32) pg MCHC 32.8 (32-36) g/dl RDW 13.9 (11.5-14.0) % Plt Count 306 (150-450) K/mm3 MPV 11.0 H (6-9.5) fl Segmented Neutrophils 29 L (36.0-66.0) % Lymphocytes (Manual) 66 H (24-44) % Monocytes (Manual) 3 (0.0-12.0) % Eosinophils (Manual) 2 (0.00-3.0) % Differential Comment NORMAL Platelet Estimate NORMAL (NORMAL) Sodium 143 (136-145) mEq/L Potassium 3.3 L (3.5-5.1) mEq/L Chloride 104 (98-107) mEq/L Carbon Dioxide 26.9 (21-32) mEq/L Anion Gap 15.2 H (5-15) MEQ/L BUN 18 (9-20) mg/dL Creatinine 0.86 (0.55-1.30) mg/dl Estimated GFR > 60 ML/MIN Glucose 135 H (70-110) MG/DL Calcium 8.5 (8.5-10.1) mg/dL Micro Results-Entire Visit: Accuchecks Date 12/22/17 Date 12/21/17 Date 12/21/17 Time 07:30 Time 16:04 Time 11:51 Accucheck Value: 159 Accucheck Value: 164 Accucheck Value: 81 - Radiology Exams Ordered Rad Exams-Entire Visit: Radiology Procedures Category Date Time Status CHEST 1 VIEW (PORTABLE) Routine Exams 12/20/17 11:04 Completed - Procedures and Test Procedures and Tests throughout Hospitalization: Therapy Orders & Screens 12/17/17 21:33 OT Eval and Treat ( Order) Comment: Consulting Provider: Physician Instructions: Reason For Exam: EKG STAT Comment: 12/17/17 21:36 PT Eval & Treat ( Order) Reason for Eval:: gait instability, multiple falls, left wrist fracture Diagnosis: gait instability, multiple falls, left wrist fracture. 12/18/17 09:00 OT Screen per Nursing Assess Comment: Protocol Order Physician Instructions: Greater than 3 points order OT Admission Screening Reason For Exam: Triggered on Admission Diagnosis: Confusion,Fall, Left wrist Fx Open Wound/Cellutlitis/Pressure Ulcers: No Acute Fx/ORIF/Change in wt bearing status: No: fx wrist Severe MUSCULOSKELETAL pain: No ADL Dysfunction: Yes Acute CVA w/Hemiparesis/Hemiplegia: No Decreased Functional Mobility/Strength: Yes Sprain/Strain: No Acute Post-op Mobility Dysfunction: No Total Points: 4 PT Screen per Nursing Assess Comment: Protocol Order Physician Instructions: Greater than 3 points order PT Admission Screenin Reason For Exam: Triggered on Admission Diagnosis: Confusion,Fall, Left wrist Fx Open Wound/Cellutlitis/Pressure Ulcers: No Acute Fx/ORIF/Change in wt bearing status: No: fx wrist Severe MUSCULOSKELETAL pain: No ADL Dysfunction: Yes Acute CVA w/Hemiparesis/Hemiplegia: No Decreased Functional Mobility/Strength: Yes Sprain/Strain: No Acute Post-op Mobility Dysfunction: No Total Points: 4 Discharge Exam General Appearance: no apparent distress Neurologic Exam: alert, No oriented x 3 Skin Exam: normal color, warm, dry Respiratory Exam: normal breath sounds, lungs clear, No respiratory distress Cardiovascular Exam: regular rate/rhythm, normal heart sounds Gastrointestinal/Abdomen Exam: soft, No tenderness, No mass Final Diagnosis/Problem List - Final Discharge Diagnosis/Problem (1) UTI (urinary tract infection) Current Visit: Yes Status: Acute (2) Distal radius fracture, left Current Visit: Yes Status: Acute (3) Gait instability Current Visit: Yes Status: Acute (4) Dementia Current Visit: No Status: Chronic - Discharge Disposition: DC TO ANY "OTHER" SHELTER Condition: Stable Prescriptions: New Ferrous Sulfate 325 mg [Feosol 325 mg] 325 mg PO TID #90 tablet Ciprofloxacin HCl [Cipro] 250 mg PO BID #10 tablet Continue Hydrochlorothiazide 25 mg [hydroDIURIL 25 MG] 25 mg PO DAILY Amlodipine Besylate 5 mg [Norvasc 5 mg] 5 mg PO DAILY Aspirin EC 81 mg [Ecotrin 81 mg] 81 mg PO DAILY Metformin HCl 1000 mg [Glucophage 1000 MG] 1,000 mg PO BID Levothyroxine Sodium [Synthroid] 137 mcg PO HS Metoprolol Tartrate 50 mg [Lopressor 50 MG] 50 mg PO BID Escitalopram Oxalate 20 mg PO DAILY Enalapril Maleate 20 mg PO BID Donepezil HCl [Aricept] 5 mg PO DAILY Atorvastatin Calcium [Lipitor 40Mg] 40 mg PO HS Hydrocodone Bit/Acetaminophen [Hydrocodon-Acetaminophen 5-325] 1 each PO Q6HPRN PRN #120 tablet MDD 4 PRN Reason: Pain Discontinued Nitrofurantoin Macro 100 mg [Macrobid 100MG Capsule] 100 mg PO BID Follow up with: DELL GORDON MD [Primary Care Provider] - 1 Week
[2017-12-22] MEDS: Glucophage 500 MG PO SCH (10:41)
[2017-12-22] MEDS: Aricept 10 MG PO SCH (10:41)
[2017-12-22] MEDS: ENOXAPARIN SODIUM SQ SCH (10:42)
[2017-12-22] MEDS: ECOTRIN 81 MG PO SCH (10:42)
[2017-12-22] MEDS: Vasotec 10 MG PO SCH (10:43)
[2017-12-22] MEDS: FEOSOL 325 MG PO SCH (10:43)
[2017-12-22] MEDS: hydroDIURIL 25 MG PO SCH (10:43)
[2017-12-22] MEDS: Klor Con 10 MEQ PO SCH (10:44)
[2017-12-22] MEDS: Lexapro 10 MG PO SCH (10:44)
[2017-12-22] MEDS: NORVASC 5 MG PO SCH (10:45)
[2017-12-22] MEDS: Lopressor 50 MG PO SCH (10:45)
== END 2017-12-22 11:35 | DRG 690 ==
LOC: MED SURG 10:30 → OBSVTOIN 12-18 10:30 → MED SURG 12-18 15:00
PROVIDERS: ADMIT Family Medicine; ATTEND Family Medicine
DX: N39.0 Urinary tract infection, site not specified (principal); S52.502A Unspecified fracture of the lower end of left radius, initial encounter for closed fracture; W17.89XA Other fall from one level to another, initial encounter; Y92.89 Other specified places as the place of occurrence of the external cause; R26.81 Unsteadiness on feet; R29.6 Repeated falls; F03.90 Unspecified dementia, unspecified severity, without behavioral disturbance, psychotic disturbance, mood disturbance, and anxiety; E11.9 Type 2 diabetes mellitus without complications; Z79.4 Long term (current) use of insulin; E78.5 Hyperlipidemia, unspecified; M19.90 Unspecified osteoarthritis, unspecified site; I10 Essential (primary) hypertension; E03.9 Hypothyroidism, unspecified; D64.9 Anemia, unspecified; M25.512 Pain in left shoulder; M25.552 Pain in left hip; R10.2 Pelvic and perineal pain; F32.9 Major depressive disorder, single episode, unspecified; Z79.899 Other long term (current) drug therapy
CPT/HCPCS: 36415; 70551; 71045; 73030; 73502; 80048; 80053; 82607; 82728; 82962; 83540; 83550; 83735; 85025; 85027; 85610; 93005; G0378; J0696; J1650; J2270; A9270-GY

== ENCOUNTER 2022-12-10 07:56 | Observation (INO) | payer MEDICARE ==
--- NOTE | 2022-12-10 08:03 | ERPHSYRPT ---
- History of Present Illness Time Seen by Provider: 12/10/22 08:02 Source: patient, EMS, old records, other (paramedics, and patient's daughter via phone) Exam Limitations: clinical condition Physician History: This is an 87-year-old white female patient who presents to the emergency department via ambulance from [facility] in [facility]. The patient is unresponsive. The patient is DNR. Patient's primary care provider is Dr. Gordon. Additional history was obtained from the paramedics as well as the patient's daughter via phone call. Patient has history of dementia, hypothyroidism, hypertension, diabetes and hyperlipidemia. Patient r ecently fell and hit her face and there is, clinically, facial fractures. However, the family does not want any radiographic studies, urinalysis or blood work performed. They only want comfort measures. Patient has a history of frequent urinary tract infections. There is a Jones catheter in place. In the last 24 hours the patient has been transported 3 different times to emergency departments for evaluation. Timing/Duration: hour(s) (24 hours) Severity: severe Modifying Factors: Improves With: nothing Associated Symptoms: other (Unresponsive) Allergies/Adverse Reactions: No Known Drug Allergies Allergy (Verified 12/10/22 08:01) Home Medications: Amlodipine Besylate 5 mg [Norvasc 5 mg] 5 mg PO DAILY 04/05/12 [History] Aspirin EC 81 mg [Ecotrin 81 mg] 81 mg PO DAILY 04/05/12 [History] Hydrochlorothiazide 25 mg [hydroDIURIL 25 MG] 25 mg PO DAILY 04/05/12 [History] Metformin HCl 1000 mg [Glucophage 1000 MG] 1,000 mg PO BID 04/05/12 [History] Levothyroxine Sodium [Synthroid] 137 mcg PO HS 08/13/16 [History] Atorvastatin Calcium [Lipitor 40Mg] 40 mg PO HS 12/18/17 [History] Donepezil HCl [Aricept] 5 mg PO DAILY 12/18/17 [History] Enalapril Maleate 20 mg PO BID 12/18/17 [History] Escitalopram Oxalate 20 mg PO DAILY 12/18/17 [History] Metoprolol Tartrate 50 mg [Lopressor 50 MG] 50 mg PO BID 12/18/17 [History] Hx Tetanus, Diphtheria Vaccination/Date Given: No Hx Influenza Vaccination/Date Given: (UNSURE) Hx Pneumococcal Vaccination/Date Given: (UNSURE) Travel Risk - International Travel Have you traveled outside of the country in past 3 weeks: No - Coronavirus Screening Are you exhibiting any of the following symptoms?: No Close contact with a COVID-19 positive Pt in past 14-21 Days: No - Review of Systems Constitutional: Other (Unresponsive) Eyes: No Symptoms Ears, Nose, & Throat: No Symptoms Respiratory: No Symptoms Cardiac: No Symptoms Abdominal/Gastrointestinal: No Symptoms Genitourinary Symptoms: No Symptoms Musculoskeletal: No Symptoms Skin: No Symptoms Neurological: No Symptoms Psychological: No Symptoms Endocrine: No Symptoms Hematologic/Lymphatic: No Symptoms Immunological/Allergic: No Symptoms All Other Systems: Reviewed and Negative - Past Medical History Pertinent Past Medical History: Yes Neurological History: Dementia ENT History: No Pertinent History Cardiac History: High Cholesterol, Hypertension Respiratory History: No Pertinent History Endocrine Medical History: Diabetes Type II, Hypothyroidism Musculoskeletal History: Arthritis GI Medical History: Esophageal Disorder, GERD History: No Pertinent History Psycho-Social History: Depression Female Reproductive Disorders: No Pertinent History Other Medical History: NIDDM, HTN, High Chol, Depression, Bowel Obstruction, Hypothyroidism - Past Surgical History Past Surgical History: Yes Neuro Surgical History: No Pertinent History Cardiac: No Pertinent History Respiratory: No Pertinent History Gastrointestinal: Appendectomy Genitourinary: No Pertinent History Musculoskeletal: Joint Replacement Female Surgical History: No Pertinent History Other Surgical History: lt hip 2013 - Social History Smoking Status: Never smoker Exposure to second hand smoke: Yes Drug Use: none Patient Lives Alone: No - Nursing Vital Signs Nursing Vital Signs: Initial Vital Signs Temperature 100.8 F 12/10/22 08:02 Pulse Rate 130 H 12/10/22 08:02 Respiratory Rate 30 H 12/10/22 08:02 Blood Pressure 84/44 12/10/22 08:02 O2 Sat by Pulse Oximetry 87 L 12/10/22 08:02 Pain Scale Pain Intensity 0 - Physical Exam General Appearance: thin, other (Unresponsive) Eye Exam: PERRL/EOMI Ears, Nose, Throat Exam: dry mucous membranes, other (Patient has significant facial ecchymosis and swelling post recent fall) Neck Exam: normal inspection, non-tender Respiratory Exam: lungs clear, airway intact, diminished breath sounds (Right side), other (Agonal type breathing), No chest tenderness, No respiratory distress, No accessory muscle use Cardiovascular Exam: tachycardia Gastrointestinal/Abdomen Exam: soft, normal bowel sounds, No tenderness Pelvic Exam: not done Rectal Exam: black stool Back Exam: normal inspection, No CVA tenderness, No vertebral tenderness Extremity Exam: normal inspection, pelvis stable Neurologic Exam: other (Patient unresponsive) SpO2 Interpretation: hypoxic O2 Delivery: Oxymask (15 L) - Course Nursing assessment & vital signs reviewed: Yes Ordered Tests: Active Orders 24 hr Category Date Time Status Nursing [Miscellaneous Nursing Order] ROUTINE Care 12/10/22 08:59 Ordered Transfer Order Routine Transfer 12/10/22 Ordered - Progress Progress: unchanged Progress Note: 12/10/22 08:55 Patient is a DNR from the detention. She is unresponsive. She is hypoxic. She is tachycardic. Family only wants comfort measures. I did discuss with Dr. Gordon. We will place her in observation and provide her with TKO IV fluids and intravenous morphine and intravenous Ativan as needed for comfort measures. Discussed with : Heidi Counseled pt/family regarding: diagnosis Medical Desision Making - Independent Historian Additional History obtained from: Child, Telephone Station Installer/EMT - External Record(s) Reviewed Records reviewed as a part of evaluation & management: longterm - Discussion of managment Care discussed with:: PCP Agreed on:: Treatment plan, place in obs Will see patient: in hospital - Diagnostic Testing Diagnostic Testing: Diagnostic tests were ordered,analyzed, and reviewed by me and used in my medical decision making for this patient. Radiologic studies (if ordered) were read by me initially then discussed with the radiologist . - Risk of complications The pt has a high risk of morbidity or mortality based on: Decision not to resucitate - Departure Departure Disposition: Home Clinical Impression: Hypoxia, Unresponsive state, Do not resuscitate status, Tachycardia Condition: Poor Critical Care Time: No Referrals: DELL GORDON MD [Primary Care Provider] - Follow up/PCP as directed
[2022-12-10] MEDS ORDERED: Zofran 4 MG/2 ML VIAL IV ONE (09:00)
[2022-12-10] MEDS ORDERED: MORPHINE SULFATE 2 MG INJ IV ONE (09:00)
[2022-12-10] MEDS ORDERED: Ativan 2 MG/1 ML VIAL IV ONE (09:01)
[2022-12-10] MEDS ORDERED: Ativan 2 MG/1 ML VIAL ONE ×2 (09:02→22:09)
[2022-12-10] MEDS ORDERED: MORPHINE SULFATE 2 MG INJ ONE (09:03)
[2022-12-10] MEDS ORDERED: Zofran 4 MG/2 ML VIAL ONE (09:04)
[2022-12-10 09:05] LABS: INFLUENZA A NEGATIVE (NEGATIVE); INFLUENZA B NEGATIVE (NEGATIVE); RESPIRATORY SYNCTIAL VIRUS NEGATIVE (Negative); SARS-CoV-2 Xpert Express NEGATIVE (NEGATIVE)
[2022-12-10] MEDS ORDERED: Sodium Chloride 0.9% 1000 ML 1,000 ML IV SCH (10:37)
[2022-12-10] MEDS ORDERED: Ativan 2 MG/1 ML VIAL IV PRN (10:37)
[2022-12-10] MEDS: MORPHINE SULFATE 2 MG INJ IV PRN ×11 (11:21→23:17)
--- NOTE | 2022-12-10 12:10 | PCM.HP ---
History of Present Illness - Chief Complaint Chief Complaint: DNR History of Present Illness: is a 87 year old female from [facility] who had a fall several days ago with bruising to her forehead and face. She has been steadily declining, she is my former patient and I know the family well. In spite of her DNR status and family requesting no aggressive measures and requesting comfort measures, she has been sent to the emergency room 3 times in the last few days at [facility]. she appears to be in the latter stages of life and the family wants her focus at this time to be on comfort measures only, they do not wish for any diagnostic testing. she had advanced dementia. - Review of Systems All Other Systems: Unable due to condition Medications & Allergies Home Medications: Home Medication List Amlodipine Besylate 5 mg [Norvasc 5 mg] 5 mg PO DAILY 04/05/12 [History Confirmed 12/10/22] Aspirin EC 81 mg [Ecotrin 81 mg] 81 mg PO DAILY 04/05/12 [History Confirmed 12/10/22] Hydrochlorothiazide 25 mg [hydroDIURIL 25 MG] 25 mg PO DAILY 04/05/12 [History Confirmed 12/10/22] Metformin HCl 1000 mg [Glucophage 1000 MG] 1,000 mg PO BID 04/05/12 [History Confirmed 12/10/22] Levothyroxine Sodium [Synthroid] 137 mcg PO HS 08/13/16 [History Confirmed 12/10/22] Atorvastatin Calcium [Lipitor 40Mg] 40 mg PO HS 12/18/17 [History Confirmed 12/10/22] Donepezil HCl [Aricept] 5 mg PO DAILY 12/18/17 [History Confirmed 12/10/22] Enalapril Maleate 20 mg PO BID 12/18/17 [History Confirmed 12/10/22] Escitalopram Oxalate 20 mg PO DAILY 12/18/17 [History Confirmed 12/10/22] Metoprolol Tartrate 50 mg [Lopressor 50 MG] 50 mg PO BID 12/18/17 [History Confirmed 12/10/22] Ciprofloxacin HCl [Cipro] 250 mg PO BID #10 tablet 12/22/17 [Rx Confirmed 12/10/22] Ferrous Sulfate 325 mg [Feosol 325 mg] 325 mg PO TID #90 tablet 12/22/17 [Rx Confirmed 12/10/22] Hydrocodone/Acetaminophen [Hydrocodone-Acetamin 5-325 mg] 1 each PO Q6HPRN PRN #120 tablet MDD 4 12/22/17 [Rx Confirmed 12/10/22] Allergies/Adverse Reactions: Allergies Allergy/AdvReac Type Severity Reaction Status Date / Time No Known Drug Allergies Allergy Verified 12/10/22 08:01 - Past Medical History Past Medical History: Yes Neurological History: Dementia ENT History: No Pertinent History Cardiac History: High Cholesterol, Hypertension Respiratory History: No Pertinent History Endocrine Medical History: Diabetes Type II, Hypothyroidism Musculoskelatal History: Arthritis GI Medical History: Esophageal Disorder, GERD History: No Pertinent History Pyscho-Social History: Depression Reproductive Disorders: No Pertinent History Comment: NIDDM, HTN, High Chol, Depression, Bowel Obstruction, Hypothyroidism - Past Surgical History Past Surgical History: Yes Neuro Surgical History: No Pertinent History Cardiac History: No Pertinent History Respiratory Surgery: No Pertinent History GI Surgical History: Appendectomy Genitourinary Surgical Hx: No Pertinent History Musculskeletal Surgical Hx: Joint Replacement Female Surgical History: No Pertinent History Other Surgical History: lt hip 2013 - Social History Smoking Status: Never smoker Exposure to second hand smoke: Yes Alcohol: None Drug Use: none - Physical Exam Vital Signs: Vital Signs - 24 hr Temp Pulse Resp BP Pulse Ox 12/10/22 11:06 85 L 12/10/22 10:41 99.3 F 101 H 24 91/44 85 L 12/10/22 10:06 101 H 33 H 72/38 90 L 12/10/22 09:10 167 H 31 H 113/62 80 L 12/10/22 08:02 100.8 F 130 H 30 H 84/44 87 L General Appearance: mild distress, other (agonal respirations, no apparent pain or discomfort) Eye Exam: other (large amount of periorbital and frontal bruising present) Respiratory Exam: prolonged expirations Cardiovascular Exam: regular rate/rhythm, normal heart sounds, normal peripheral pulses Skin Exam: mottled Results - Labs Lab/Micro Results: Lab Results-Last 24 Hours 12/10/22 Range/Units 08:23 Influenza Type A Ag NEGATIVE (NEGATIVE) Influenza Type B Ag NEGATIVE (NEGATIVE) RSV (PCR) NEGATIVE (Negative) SARS-CoV-2 (PCR) NEGATIVE (NEGATIVE) Assessment/Plan (1) End of life care Current Visit: Yes Status: Acute Assessment & Plan: I agree with comfort measures only at this time. the family is reasonable and we will honor this request. Code(s): Z51.5 - ENCOUNTER FOR PALLIATIVE CARE (2) Head injury due to trauma Current Visit: Yes Status: Acute Assessment & Plan: reportedly from a fall, family does not desire diagnostic testing which I believe is reasonable. we discussed the possibility of a intracranial hemorrhage etc and they would not wish for her to be transferred or have any further surgical procedures or intervention so testing is futile and I feel this is a reasonable request. Code(s): S09.90XA - UNSPECIFIED INJURY OF HEAD, INITIAL ENCOUNTER (3) Unresponsive state Current Visit: Yes Status: Acute (4) Dementia Current Visit: No Status: Chronic Assessment & Plan: advanced dementia with decline and weight loss, supportive care Code(s): F03.90 - UNSPECIFIED DEMENTIA WITHOUT BEHAVIORAL DISTURBANCE
[2022-12-10] MEDS ORDERED: FEVERALL 650 MG PR ONE (15:44)
[2022-12-10] MEDS ORDERED: FEVERALL 650 MG PR PRN (15:48)
[2022-12-10] MEDS: Ativan 2 MG/1 ML VIAL IV PRN ×6 (16:26→22:22)
[2022-12-10] MEDS: Ativan 20 MG/10 ML MDV IV PRN (23:18)
[2022-12-11] MEDS: MORPHINE SULFATE 2 MG INJ IV PRN ×14 (00:20→13:57)
[2022-12-11] MEDS: Ativan 20 MG/10 ML MDV IV PRN ×14 (00:21→13:57)
[2022-12-11 12:05] VITALS: BP 79/36; PULSE 119; O2SAT 94
== END 2022-12-11 14:03 ==
LOC: ED 07:56 → MED SURG 10:28
PROVIDERS: ADMIT Family Medicine; ATTEND Family Medicine
DX: Z51.5 Encounter for palliative care (principal); S09.90XD Unspecified injury of head, subsequent encounter; F03.90 Unspecified dementia, unspecified severity, without behavioral disturbance, psychotic disturbance, mood disturbance, and anxiety; E03.9 Hypothyroidism, unspecified; I10 Essential (primary) hypertension; E11.9 Type 2 diabetes mellitus without complications; E78.5 Hyperlipidemia, unspecified; Z20.828 Contact with and (suspected) exposure to other viral communicable diseases; Z79.899 Other long term (current) drug therapy
CPT/HCPCS: 0241U; 51702; 94760; 96374; 96375; 99285; G0378; J2060; J2270; J2405